=== PATIENT | male | born 1985 | race Caucasian/White ===

== ENCOUNTER 2017-03-31 12:10 | Emergency (ER) | payer OTHER ==
[2017-03-31] MEDS ORDERED: Sodium Chloride 0.9% 1,000 ML IV ONE (12:17)
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
[2017-03-31 13:09] LABS: CHLORIDE,CL 107 mmol/L (98-110); SODIUM,NA 138 mmol/L (136-146)
== END 2017-03-31 13:58 | disposition home or self-care (01) ==
LOC: MW.ED 12:10
DX: T23.221A Burn of second degree of single right finger (nail) except thumb, initial encounter (principal); W86.0XXA Exposure to domestic wiring and appliances, initial encounter; Y92.009 Unspecified place in unspecified non-institutional (private) residence as the place of occurrence of the external cause; Z72.0 Tobacco use
CPT/HCPCS: 36415; 80053; 82550; 84484; 93005; 99285; J7040; 99284